=== PATIENT | female | born 1970 | race Caucasian/White ===

== ENCOUNTER 2019-08-23 10:37 | Outpatient (CLI) | payer BC, SELFPAY ==
--- NOTE | 2019-08-23 11:11 | ECG_ITS ---
NAME OF STUDY: TREADMILL STRESS TEST INDICATION: Chest Pain Baseline blood pressure of 148/93 mm Hg, heart rate 90 beats per minute and oxygen saturation 96%. EKG showed normal sinus rhythm, right axis deviation with normal ST-Ts. The patient exercised for 5 minutes 29 seconds on a standard [facility] protocol. Patient attained a maximum heart rate of 163 beats per minute(96 % of the maximum predicted heart rate) with a blood pressure at the peak exercise of 198/56 mm Hg and oxygen saturation 98%. The EKG at the peak exercise revealed sinus tachycardia with no significant ST-T wave changes. Patient did not have any chest pain or any significant arrhythmia with the exercise During the recovery phase, there were no new changes. Blood pressure at the end of the recovery phase was 156/85 mm Hg with a heart rate of 103 beats per minute and oxygen saturation 98%. CONCLUSION: 1. Normal EKG response to treadmill exercise. 2. No exercise-induced chest pain or cardiac arrhythmia 3. Decreased exercise tolerance for age, attained a maximum of 7 METs. Maximum VO2 of 24.5 mL/kg/min. 4. Baseline hypertension with normal response to exercise. Electronically Signed On 08-25-2019 13:46:37 RISK LEAD by Janeen Lee M.D. [email or web address]
[2019-08-23 11:21] VITALS: BMI 28.9
[2019-08-23 11:35] VITALS: BP 168/75; PULSE 100
--- NOTE | 2019-08-23 13:30 | USCV_ITS ---
Tangela Bailey Age: 49 Gender: F : 1970 Exam Date: 08/23/2019 11:55 Ordering Phys: Janeen Lee MD ([email or web address]) Technologist: Filiberto Juarez Exam Location: [facility] [place] Indication: SOB BP: 130 / 70 HR: 100 Rhythm: Sinus Technical Quality: Good MEASUREMENTS (Male / Female) Normal Values 2D ECHO LV Diastolic Diameter PLAX 3.1 cm 4.2 - 5.9 / 3.9 - 5.3 cm LV Systolic Diameter PLAX 1.9 cm IVS Diastolic Thickness 0.9 cm 0.6 - 1.0 / 0.6 - 0.9 cm IVS Systolic Thickness 1.1 cm LVPW Diastolic Thickness 0.8 cm 0.6 - 1.0 / 0.6 - 0.9 cm LVPW Systolic Thickness 1.0 cm LVOT Diameter 2.0 cm LV Ejection Fraction 2D Teich 68.6 % LV Ejection Fraction MOD 2C 58.1 % LV Ejection Fraction 2C AL 59.6 % LA Diameter 3.8 cm LA Width 3.7 cm LA Height 4.5 cm RA Width 3.2 cm RA Height 3.5 cm Aorta at Sinotubular Diameter 2.0 cm M-MODE LV Diastolic Diameter MM 4.0 cm 4.2 - 5.9 / 3.9 - 5.3 cm LV Systolic Diameter MM 2.2 cm LV Ejection Fraction MM Teich 77.0 % IVS Diastolic Thickness MM 1.0 cm 0.6 - 1.0 / 0.6 - 0.9 cm IVS Systolic Thickness MM 1.0 cm LVPW Diastolic Thickness MM 1.0 cm 0.6 - 1.0 / 0.6 - 0.9 cm LVPW Systolic Thickness MM 1.2 cm RV Diastolic Diameter MM 1.7 cm Aortic Annulus Diameter 2.7 cm LA Ao Ratio MM 1.4 MV E Point Septal Separation 0.6 cm DOPPLER AV Peak Velocity 166.0 cm/s LVOT Peak Velocity 111.0 cm/s AV Area Cont Eq vti 2.2 cm squared AV Area Cont Eq pk 2.1 cm squared MV Area PHT 5.0 cm squared Mitral E to A Ratio 0.8 MV E' Velocity 8.0 cm/s Mitral E to MV E' Ratio 11.4 Mitral E to LV E' Lateral Ratio 10.6 Mitral E to LV E' Septal Ratio 12.6 TR Peak Velocity 162.0 cm/s TR Peak Gradient 10.5 mmHg TV Peak E Velocity 95.0 cm/s Right Atrial Pressure 3.0 mmHg Pulmonary Artery Systolic Pressu 13.5 mmHg PV Peak Velocity 109.0 cm/s FINDINGS Left Ventricle Normal left ventricular size, systolic function and wall thickness, with no regional wall motion abnormalities. Left ventricular ejection fraction is estimated at 60 %. Normal diastolic function. Right Ventricle Normal right ventricular size and systolic function. Right ventricular systolic pressure 13.5 mmHg. Right Atrium Normal right atrial size. Right atrial pressure estimated at 3 mm Hg. Left Atrium Normal left atrial size. Mitral Valve Structurally normal mitral valve. No mitral valve stenosis. Trace mitral valve regurgitation. Aortic Valve Structurally normal trileaflet aortic valve. No aortic valve stenosis. No aortic valve regurgitation. Tricuspid Valve Structurally normal tricuspid valve. No tricuspid valve stenosis. Trace tricuspid valve regurgitation. Pulmonic Valve Pulmonic valve not well visualized. No pulmonary valve stenosis. Trace pulmonary valve regurgitation. Pericardium No pericardial effusion. Aorta Normal size aortic root and proximal ascending aorta. CONCLUSIONS 1. Normal left ventricular size, systolic function and wall thickness, with no regional wall motion abnormalities. Left ventricular ejection fraction is estimated at 60 %. Normal diastolic function. 2. Normal right ventricular size and systolic function. 3. No significant valvular abnormality. 4. Right atrial pressure estimated at 3 mm Hg. 5. No prior similar studies to compare. Janeen Lee MD (Electronically Signed) Final Date: 25 August 2019 18:55 S
== END 2019-08-23 10:38 | disposition home or self-care (01) ==
LOC: CDL 10:41
PROVIDERS: PCP Registered Nurse; Visit Provider Internal Medicine Cardiovascular Disease
DX: R07.9 Chest pain, unspecified (principal); R06.02 Shortness of breath
CPT/HCPCS: 93017; 93306

== ENCOUNTER → 2019-10-25 16:38 | Outpatient (BNVA) | payer BC, SELFPAY | PROVIDERS: PCP Registered Nurse; Visit Provider Registered Nurse | DX: Z01.419 Encounter for gynecological examination (general) (routine) without abnormal findings (principal); K59.04 Chronic idiopathic constipation | CPT/HCPCS: 87070; 88175 ==

== ENCOUNTER 2019-12-29 08:00 | Day surgery (SDC) | payer BC, SELFPAY ==
[2019-12-27 14:04] VITALS: BMI 29.2
[2019-12-29 08:18] VITALS: BP 139/97; PULSE 96; RESP 20; TEMP 36.4; O2SAT 98
[2019-12-29] MEDS: sodium chloride 0.9% 1,000 ML 30 ML IV (08:18)
--- NOTE | 2019-12-29 08:35 | ANES.PREANE2 ---
Pre-Anesthetic Assessment Pre-Anesthetic Assessment: Height/Weight: Height 1.57 m Weight 72.575 kg Temp Pulse Resp BP Pulse Ox 97.6 F 96 20 H 139/97 98 12/29/19 08:18 12/29/19 08:18 12/29/19 08:18 12/29/19 08:18 12/29/19 08:18 Preop Diagnosis: Screening colonoscopy Proposed Procedure: Operation Date: 12/29/19 09:35 Proposed Procedures p Colonoscopy 15346 Z12.11 screening colonoscopy(Not Applicable) - Kendall Arrieta MD Last intake: Intake Last Liquid Date 12/28/19 Last Liquid Time 23:00 Last Solid Date 12/27/19 Last Solid Time 23:59 Social: Social History: No alcohol and No tobacco Exam: Pre-Anes Outpt Exam: alert, oriented x 3, clear to auscultation bilaterally and regular rate & rhythm Airway: Submandibular: WNL Cervical ROM: WNL MP: 2 Dentition: Other (teeth ok) History/ROS: No significant history except as noted Pulmonary: Pulmonary: None reported CV/HEM: CV/HEM: HTN : : None reported Hepatic: Hepatic: None reported GI: GI: GERD (occ) Metabolic: Metabolic: None reported Musc/skel: Musc/skel: None reported Neuropsych: Neuropsych: Anxiety Anesthetic Plan: ASA status: 2 Anesthesia: Anesthesia Evaluation and MAC Risk of > 500 ml blood loss (7ml/kg in children): No PFSH Anesthesia PFSH: Medical History Essential (primary) hypertension Surgical History History of cholecystectomy Family History Other Cancer Hyperlipidemia Hypertension Denies family history of Anesthesia complication Bleeding disorder Social History Smoking and tobacco status: never smoked Alcohol intake: never Adopted: No Caregiver/support person: No Lives independently: No Household members: spouse Marital status: Current occupational status: employed History of recent travel: No Sexually active: Yes Current gender identity: Female Data Anesthesia Cardiac Studies: No Data to Display
[2019-12-29 08:37] LABS: OR HCG Qualitative Urine Negative (Negative)
--- NOTE | 2019-12-29 10:13 | W.PM.OPSFHP ---
Same Day Surgery H&P Indication for Procedure/HPI DATE OF PROCEDURE: December 29, 2019 CHIEF COMPLAINT/INDICATIONFOR SURGICAL PROCEDURE: screening colon PREOP DIAGNOSIS: Screening colonoscopy PLANNED PROCEDRUE: Operation Date: 12/29/19 09:35 Proposed Procedures p Colonoscopy 42098 Z12.11 screening colonoscopy(Not Applicable) - Kendall Arrieta MD Medications/Allergies* Allergies/Adverse Reactions Allergy/AdvReac Type Severity Reaction Status Date / Time No Known Allergies Allergy Verified 11/04/19 09:18 Pertinent History/Comorbid Conditions* Medical History (Updated 11/04/19 @ 09:35 by Kendall Arrieta MD) Essential (primary) hypertension Surgical History (Updated 11/04/19 @ 09:35 by Kendall Arrieta MD) History of cholecystectomy Family History (Updated 11/04/19 @ 09:21 by RAIMUNDO Tomas) Hyperlipidemia Cancer Hypertension Denies family history of Anesthesia complication Bleeding disorder Social History Smoking and tobacco status: never smoked Alcohol intake: never Adopted: No Caregiver/support person: No Lives independently: No Household members: spouse Marital status: Current occupational status: employed History of recent travel: No Sexually active: Yes Current gender identity: Female Pertinent Exam Findings alert, oriented x 3 and regular rate & rhythm Recommendations Surgery/Procedure today Coding Level of Care Code Acute Clinical Cytogeneticist Scientist for Lesly Valenzuela
[2019-12-29 10:42] VITALS: BP 125/78; PULSE 95; RESP 16; TEMP 36.2; O2SAT 96
[2019-12-29 10:55] VITALS: BP 120/79; PULSE 85; RESP 18; O2SAT 96
== END 2019-12-29 11:10 | disposition home or self-care (01) ==
PROVIDERS: Anesthesiology; PCP Registered Nurse; Visit Provider Surgery
PROC: 0DJD8ZZ Inspection of Lower Intestinal Tract, Via Natural or Artificial Opening Endoscopic (ICD-10-PCS; CPT 45378; principal; 2019-12-29 09:30)
DX: Z12.11 Encounter for screening for malignant neoplasm of colon (principal); K57.30 Diverticulosis of large intestine without perforation or abscess without bleeding; K64.8 Other hemorrhoids; I10 Essential (primary) hypertension; K21.9 Gastro-esophageal reflux disease without esophagitis
CPT/HCPCS: 12345; 45378; 84703; J2704; J7030

== ENCOUNTER 2020-02-13 07:19 | Outpatient (CLI) | payer BC, SELFPAY ==
--- NOTE | 2020-02-13 07:22 | MM_ITS ---
WS: [id number] BILATERAL SCREENING DIGITAL MAMMOGRAM WITH CAD HISTORY: SCREENING COMPARISON: None available. Bilateral CC and MLO views submitted. Computer aided detection analyzed. Breast composition: There are scattered areas of fibroglandular density. No suspicious masses, microc alcifications or architectural distortion. MM/[id number] IMPRESSION: BI-RADS: 1-Negative FOLLOW UP: 1 Year Follow-up
== END 2020-02-13 07:20 | disposition home or self-care (01) ==
PROVIDERS: PCP Registered Nurse; Visit Provider Registered Nurse
DX: Z12.31 Encounter for screening mammogram for malignant neoplasm of breast (principal)
CPT/HCPCS: 77067

== ENCOUNTER 2021-02-26 10:10 | Outpatient (CLI) | payer BC, SELFPAY ==
--- NOTE | 2021-02-26 10:15 | MM_ITS ---
WS: [id number] BILATERAL SCREENING DIGITAL MAMMOGRAM WITH CAD HISTORY: SCREENING COMPARISON: 02/13/2020 Bilateral CC and MLO views submitted. Computer aided detection analyzed. Breast composition: The breasts are heterogeneously dense, which may obscure small masses. No suspici ous masses, microcalcifications or architectural distortion. MM/[id number] IMPRESSION: BI-RADS: 1-Negative FOLLOW UP: 1 Year Follow-up
== END 2021-02-26 10:11 | disposition home or self-care (01) ==
LOC: RADSHAW 10:13
PROVIDERS: PCP Registered Nurse; Visit Provider Registered Nurse
DX: Z12.31 Encounter for screening mammogram for malignant neoplasm of breast (principal)
CPT/HCPCS: 77067

== ENCOUNTER → 2022-03-06 09:00 | Outpatient (BNVA) | payer OTHER, SELFPAY | PROVIDERS: PCP Registered Nurse; Visit Provider Nurse Practitioner Family | DX: I10 Essential (primary) hypertension (principal); F41.9 Anxiety disorder, unspecified; R00.2 Palpitations | CPT/HCPCS: 80053; 84443; 85025 ==

== ENCOUNTER → 2024-02-16 10:27 | Outpatient (BNVA) | payer OTHER, SELFPAY | PROVIDERS: PCP Nurse Practitioner Family; Visit Provider Nurse Practitioner Family | DX: R63.5 Abnormal weight gain (principal); I10 Essential (primary) hypertension | CPT/HCPCS: 80053; 80061; 84443; 85025 ==